=== PATIENT | male | born 1995 | race Caucasian/White ===

== ENCOUNTER 2016-06-26 19:37 | Emergency (ER) | payer OTHER ==
[~2016-06-26] VITALS: Ht 180.3 cm; Wt 77.4 kg
[2016-06-26 20:36] LABS: MCH 28.3 PG (29.0-34.0); MCHC 34.2 G/DL (30.0-36.0); MCV 82.7 FL (86-99); MEAN PLAT.VOLUME 10.3 uM^3 (9.0-12.4); PLATELET COUNT 264 K/uL (156-360); WHITE BLOOD COUNT 7.6 K/uL (4.1-10.2)
[2016-06-26 20:58] LABS: CHLORIDE 101 mEq/L (99-109); POTASSIUM 3.8 mEq/L (3.7-5.4); SODIUM 138 mEq/L (136-147)
[2016-06-26 21:00] LABS: GLUCOSE 89 mg/dL (70-99)
[2016-06-26 21:01] LABS: ANION GAP 11 MEQ/L (2-14)
[2016-06-26 21:02] LABS: TOTAL BILIRUBIN 1.1 mg/dL (0.0-1.0)
[2016-06-26 21:04] LABS: ALKALINE PHOSPHATASE 76 IU/L (3-129); GFR ESTIMATE (CALCULATED) > 59 mL/min/
[2016-06-26 21:05] LABS: UREA NITROGEN (BUN) 19 mg/dL (9-23)
[2016-06-26 21:08] LABS: TROP-I INTERPRETATION NEGATIVE; TROPONIN-I < 0.01 ng/mL (0.0-0.30)
[2016-06-26 22:41] LABS: TROP-I INTERPRETATION NEGATIVE; TROPONIN-I < 0.01 ng/mL (0.0-0.30)
[2016-06-26 22:55] VITALS: BP 125/69
== END 2016-06-26 22:57 | disposition home or self-care (01) ==
LOC: EME 19:37
PROVIDERS: Nurse Practitioner Family
DX: R07.9 Chest pain, unspecified (principal); R06.02 Shortness of breath
CPT/HCPCS: 71020; 80053; 84484; 85027; 93005; 99281; 99284